=== PATIENT | male | born 1960 ===

== ENCOUNTER 2021-01-30 16:54 | Emergency (ER) | payer SELFPAY ==
[~2021-01-30] VITALS: Ht 165.1 cm; Wt 65.9 kg
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
[2021-01-30] MEDS ORDERED: DIAZEPAM 5 MG/ML, 2ML ONE (17:27)
[2021-01-30] MEDS ORDERED: KETOROLAC 30 MG/1 ML ONE (17:27)
[2021-01-30] MEDS ORDERED: DIAZEPAM 5 MG/ML, 2ML IVPush PRN (17:30)
--- NOTE | 2021-01-30 17:40 | NUR ---
AIDEN THOMAS AT BEDSIDE FOR EVAL PER PT REQUEST.
[2021-01-30] MEDS ORDERED: KETOROLAC 30 MG/1 ML IVPush ONE (18:00)
[2021-01-30] MEDS ORDERED: TRIAMCINOLONE OINT 0.1%, 15GM TP ONE (18:00)
--- NOTE | 2021-01-30 18:05 | NUR ---
PT RESTING ON GURNEY. NADN. RIVERA.
[2021-01-30 19:00] VITALS: BP 142/94
--- NOTE | 2021-01-30 19:01 | NUR ---
PT TAKEN TO CT IN STABLE CONDITION. NADN. VSS.
--- NOTE | 2021-01-30 19:41 | NUR ---
PT CHART REVIEWED AND PLACED FOR RECHECK.
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
== END 2021-01-30 20:14 | disposition home or self-care (01) ==
LOC: ED 17:24
DX: S23.3XXA Sprain of ligaments of thoracic spine, initial encounter (principal); S16.1XXA Strain of muscle, fascia and tendon at neck level, initial encounter; R51.9 Headache, unspecified; E11.9 Type 2 diabetes mellitus without complications; V49.49XA Driver injured in collision with other motor vehicles in traffic accident, initial encounter; Y93.89 Activity, other specified; Y92.410 Unspecified street and highway as the place of occurrence of the external cause; Y99.8 Other external cause status
CPT/HCPCS: 70450; 72125; 96374; 96375; 99285; J1885; J3360